=== PATIENT | male | born 1975 | race Caucasian/White ===

== ENCOUNTER 2019-07-31 18:19 | Emergency (ER) | payer MEDICAID ==
[~2019-07-31] VITALS: Ht 182.9 cm; Wt 70.8 kg
--- NOTE | 2019-07-31 18:26 | NUR ---
CAME IN FOR ABDOMINAL PAIN AND DISTENSION X 1 MONTH. DENIES PAIN AT BTHIS TIME. TO ER BED 4, HOOKED TO MONITOR, CHANGED TO HOSP GOWN, WARM BLANKET PROVIDED, PATIENT AOx 4, BREATHING EVEN AND UNLABORED, NAD NOTED. DR GALVEZ AT BEDSIDE.
--- NOTE | 2019-07-31 18:47 | NUR ---
PATIENT SIGNED CONSENT FOR THERAPEUTIC PARACENTESIS.
[2019-07-31 18:57] LABS: BASOPHILS % (AUTO) 0.5 % (0.0-2.0); EOSINOPHILS % (AUTO) 0.4 % (0.0-6.0); HEMATOCRIT 43 % (39-51); HEMOGLOBIN 14.3 g/dL (13.5-17.5); LYMPHOCYTES % (AUTO) 9.5 % (20.0-44.0); MEAN CORPUSCULAR HGB CONC 34 g/dl (31.0-36.0); MEAN CORPUSCULAR VOLUME 100 fL (80-96); MONOCYTES # (AUTO) 0.7 /CMM (0.1-1.30); MONOCYTES % (AUTO) 6.9 % (2.0-12.0); NEUTROPHILS # (AUTO) 8.6 /CMM (1.8-8.9); NEUTROPHILS % (AUTO) 82.7 % (43.0-81.0); PLATELET COUNT (AUTO) 266 /CMM (150-450); RED BLOOD CELL COUNT(AUTO) 4.26 MIL/uL (4.5-6.0); WHITE BLOOD COUNT (AUTO) 10.4 K/uL (4.3-11.0)
[2019-07-31] MEDS ORDERED: LIDOCAINE HCL/PF 1% 30 ML VIAL TP ONE (19:00)
[2019-07-31] MEDS ORDERED: LIDOCAINE 1% INJ 50 ML MDV IJ ONE (19:00)
--- NOTE | 2019-07-31 19:22 | NUR ---
DR GAVLEZ AT BEDSIDE FOR PARACENTESIS
--- NOTE | 2019-07-31 19:35 | NUR ---
REPORT GIVEN TO DEVANTE MARTINEZ FOR OLGA
[2019-07-31] MEDS ORDERED: HYDROCODONE/APAP 5/325MG 1 EACH TABLET ONE (19:47)
[2019-07-31] MEDS ORDERED: HYDROCODONE/APAP 5/325MG 1 EACH TABLET PO ONE (20:00)
--- NOTE | 2019-07-31 20:10 | NUR ---
PARACENTESIS OUTPUT NOTED AT 1025ML
--- NOTE | 2019-07-31 20:29 | NUR ---
Patient discharged to home in stable condition. Written and verbal after care instructions given. Patient verbalizes understanding of instruction. Pt ambulatory with a steady gait
[2019-07-31 20:30] VITALS: BP 119/75
[2019-08-03] MEDS ORDERED: CHLO25CA22 PO (11:39)
[2019-08-03] MEDS ORDERED: SPIR25TA PO (11:39)
[2019-08-03] MEDS ORDERED: LEVO500T75 PO (11:39)
== END 2019-07-31 20:31 | disposition home or self-care (01) ==
LOC: ER 18:24
DX: R18.8 Other ascites (principal); Z88.0 Allergy status to penicillin; Z60.2 Problems related to living alone
CPT/HCPCS: 36415; 49083; 85025; 85730; 99285; J3490 ×2

== ENCOUNTER 2019-08-02 21:47 | Inpatient (IN) | payer MEDICAID ==
[~2019-08-02] VITALS: Ht 182.9 cm; Wt 68.9 kg
--- NOTE | 2019-08-02 21:50 | NUR ---
PT CAME INTO THE ED C/O LOWER AND R SIDED ABDOMINAL PAIN 7/10 W/ ABDOMINAL DISTENTION. PT ENDROSES ASCITES AND ADMITS TO BEING A CHRONIC ALCOHOLIC. PT AAOX4, BREATHING EVEN AND UNLABORED ON RA W/ NAD NOTED. PT CONNECTED TO THE MONITOR AND POX
[2019-08-02] MEDS ORDERED: CLINDAMYCIN 900 MG/6 ML VIAL ONE (23:00)
[2019-08-02] MEDS ORDERED: ONDANSETRON HCL/PF 4 MG/2 ML VIAL IVP ONE (23:00)
[2019-08-02] MEDS ORDERED: CLINDAMYCIN 900 MG in IV D5W 100 ML IV ONE (23:00)
[2019-08-02] MEDS ORDERED: CEFTRIAXONE 1GM BAG (ER ONLY) 50 ML IV ONE ×2 (23:00)
[2019-08-02] MEDS ORDERED: LORAZEPAM INJ 2 MG/ML VIAL IV ONE (23:00)
[2019-08-02] MEDS ORDERED: HYDROMORPHONE INJ 2 MG/ML DISP.SYRIN IV ONE (23:00)
--- NOTE | 2019-08-02 23:00 | NUR ---
DR ZALDIVAR AT BEDSIDE
[2019-08-02] MEDS ORDERED: LORAZEPAM INJ 2 MG/ML VIAL ONE (23:01)
[2019-08-02] MEDS ORDERED: HYDROMORPHONE 1 MG/1 ML DISP.SYRIN ONE (23:01)
[2019-08-02] MEDS ORDERED: ONDANSETRON HCL/PF 4 MG/2 ML VIAL ONE (23:01)
[2019-08-02 23:16] LABS: BASOPHILS % (AUTO) 0.6 % (0.0-2.0); EOSINOPHILS % (AUTO) 0.5 % (0.0-6.0); HEMATOCRIT 40 % (39-51); HEMOGLOBIN 13.3 g/dL (13.5-17.5); LYMPHOCYTES % (AUTO) 11.9 % (20.0-44.0); MEAN CORPUSCULAR HGB CONC 33 g/dl (31.0-36.0); MEAN CORPUSCULAR VOLUME 101 fL (80-96); MONOCYTES # (AUTO) 0.7 /CMM (0.1-1.30); MONOCYTES % (AUTO) 8.9 % (2.0-12.0); NEUTROPHILS # (AUTO) 6.6 /CMM (1.8-8.9); NEUTROPHILS % (AUTO) 78.1 % (43.0-81.0); PLATELET COUNT (AUTO) 212 /CMM (150-450); RED BLOOD CELL COUNT(AUTO) 3.98 MIL/uL (4.5-6.0); WHITE BLOOD COUNT (AUTO) 8.4 K/uL (4.3-11.0)
[2019-08-02 23:23] LABS: CALCIUM, SERUM 8.9 mg/dL (8.5-10.1); CREATININE 0.8 mg/dL (0.6-1.3)
[2019-08-02 23:29] LABS: ALBUMIN 3.1 g/dL (3.4-5.0); BILIRUBIN,DIRECT 0.6 mg/dL (0.0-0.2); BILIRUBIN,TOTAL 1.3 mg/dL (0.2-1.0); TOTAL PROTEIN, SERUM 6.9 g/dL (6.4-8.2)
--- NOTE | 2019-08-02 23:38 | NUR ---
PT TAKEN TO CT
--- NOTE | 2019-08-02 23:50 | NUR ---
PT BACK FROM CT
[2019-08-02] MEDS ORDERED: diphenhydrAMINE HCL 50 MG/ML VIAL ONE (23:53)
[2019-08-02] MEDS ORDERED: methylPREDNISolone SOD SUCC 125 MG/2ML VIAL ONE (23:59)
[2019-08-03] MEDS ORDERED: ZOLPIDEM TARTRATE 5 MG TABLET PO PRN
[2019-08-03] MEDS ORDERED: diphenhydrAMINE HCL 50 MG/ML VIAL IV ONE
[2019-08-03] MEDS ORDERED: FOLIC ACID 1 MG TABLET PO ONE
[2019-08-03] MEDS ORDERED: ONDANSETRON HCL/PF 4 MG/2 ML VIAL IVP PRN
[2019-08-03] MEDS ORDERED: Z GUARD REMEDY 2 OZ OINT TP PRN
[2019-08-03] MEDS ORDERED: HYDROCODONE/APAP 5/325MG 1 EACH TABLET PO PRN
[2019-08-03] MEDS ORDERED: ACETAMINOPHEN 325 MG TABLET PO PRN
[2019-08-03] MEDS ORDERED: MAGNESIUM HYDROXIDE 30 ML UDC PO PRN
[2019-08-03] MEDS ORDERED: LORAZEPAM INJ 2 MG/ML VIAL IV PRN
[2019-08-03] MEDS ORDERED: MAG HYDROX/AL HYDROX/SIMETH 30 ML UDC PO PRN
[2019-08-03] MEDS ORDERED: methylPREDNISolone SOD SUCC 125 MG/2ML VIAL IV ONE ×2 (00:30)
--- NOTE | 2019-08-03 01:29 | NUR ---
REPORT GIVEN TO MICHELLE ANGELES
[2019-08-03] MEDS ORDERED: OMEP20TA20 PO (02:02)
[2019-08-03] MEDS ORDERED: RANI-655 PO (02:03)
[2019-08-03] MEDS ORDERED: diphenhydrAMINE HCL 50 MG/ML VIAL ONE (02:05)
--- NOTE | 2019-08-03 02:22 | NUR ---
PT TRANSFERRED TO ROOM IN STABLE CONDITION
[2019-08-03 02:30] VITALS: BP 115/82
[2019-08-03] MEDS ORDERED: diphenhydrAMINE HCL 50 MG/ML VIAL IV PRN (02:30)
--- NOTE | 2019-08-03 02:39 | NUR ---
RN ADMITTING NOTES RECEIVED REPORT FROM PATTERN SCRATCHER SOWMYA. Pt ARRIVED TO THE FLOOR VIA ER GELA, WAS ABLE TO WALK TO ROOM 304-1, WITH STEADY GAIT. NO S/S OF ACUTE DISTRESS OR SOB NOTED. Pt IS A/OX4, VERBAL, ABLE TO MAKE NEEDS KNOWN. IV ACCESS ON LAC #20G. SAFETY MEASURES IN PLACE. BED LOW, LOCKED, HOB ELEVATED, SIDE RAILS UP, CALL LIGHT AND BEDSIDE TABLE WITHIN REACH. WILL CONTINUE TO MONITOR Pt's CONDITION AND SAFETY THROUGHOUT THE NIGHT.
[2019-08-03] MEDS ORDERED: FOLIC ACID 1 MG TABLET ONE (02:40)
[2019-08-03 03:00] VITALS: BP 115/82
[2019-08-03 04:00] VITALS: BP 102/68
[2019-08-03] MEDS ORDERED: CLINDAMYCIN IV RTU IN D5W 600 MG/50 ML PIGGYBACK IV SCH (05:00)
--- NOTE | 2019-08-03 05:02 | NUR ---
RN NOTES Pt ALREADY RECEIVED A BAG OF CLINDAMYCIN IN THE ER AT 0000. PER ORDER Q8H. NON ADMINISTERED 0500 DOSE.
[2019-08-03] MEDS ORDERED: LORA-259 PO (05:19)
[2019-08-03] MEDS ORDERED: HYDR-4384 PO (05:19)
[2019-08-03 06:11] LABS: BASOPHILS % (AUTO) 0.1 % (0.0-2.0); HEMATOCRIT 37 % (39-51); HEMOGLOBIN 12.4 g/dL (13.5-17.5); LYMPHOCYTES # (AUTO) 0.3 /CMM (0.8-4.8); LYMPHOCYTES % (AUTO) 5.3 % (20.0-44.0); MEAN CORPUSCULAR HGB CONC 33 g/dl (31.0-36.0); MEAN CORPUSCULAR VOLUME 100 fL (80-96); MONOCYTES # (AUTO) 0.1 /CMM (0.1-1.30); MONOCYTES % (AUTO) 0.9 % (2.0-12.0); NEUTROPHILS # (AUTO) 5.7 /CMM (1.8-8.9); NEUTROPHILS % (AUTO) 93.7 % (43.0-81.0); PLATELET COUNT (AUTO) 179 /CMM (150-450); RED BLOOD CELL COUNT(AUTO) 3.71 MIL/uL (4.5-6.0); WHITE BLOOD COUNT (AUTO) 6.1 K/uL (4.3-11.0)
[2019-08-03 06:34] LABS: CALCIUM, SERUM 8.6 mg/dL (8.5-10.1); CREATININE 0.7 mg/dL (0.6-1.3); MAGNESIUM 1.8 mg/dL (1.8-2.4); PHOSPHORUS 3.5 mg/dL (2.5-4.9); POTASSIUM 3.8 mmol/L (3.5-5.1)
[2019-08-03 06:40] LABS: THYROID STIMULATING HORMONE 1.256 uIU/mL (0.358-3.74)
--- NOTE | 2019-08-03 07:00 | NUR ---
Tele/RN opening Note Received patient AO x 4, able to responds all stimuli. Denies pain at this time, skin is warm to touch, clean/dry,intact IV site. Respiratory even and unlabored in room air. keeplower position of bed with elevated HOB. Call light within reach, will continue to monitor.
--- NOTE | 2019-08-03 07:10 | NUR ---
RN CLOSING NOTES NO SIGNIFICANT CHANGES IN Pt's CONDITION. Pt IS RESTING COMFORTABLY IN BED. NO S/S OF ACUTE DISTRESS OR SOB NOTED. ALL NEEDS MET AND ATTENDED TO. SAFETY MEASURES IN PLACE. WILL ENDORSE TO DAYSHIFT RN FOR Pt's OLGA.
[2019-08-03] MEDS ORDERED: CLINDAMYCIN 600 MG in IV D5W 50 ML IV SCH (07:28)
[2019-08-03 08:00] VITALS: BP 102/71
[2019-08-03] MEDS ORDERED: CEFTRIAXONE 1GM BAG (ER ONLY) 1 GM/50 ML PIGGYBACK IV SCH (09:00)
--- NOTE | 2019-08-03 11:09 | NUR ---
Social service consult requested by for alcohol abuse resources. Per MD notes pt is a 43-year-old male who was here 2 days ago with abdominal pain and abdominal distention due to ascites, chronic abdominal pain due to recurrent ascites secondary to alcoholic liver disease and complaints of withdrawal symptoms whenever he stops drinking alcohol. Pt was admitted to [facility] for abdominal wall cellulitis. LICENSING OFFICER met with the pt bedside. LICENSING OFFICER introduced self, explained the role of SW and purpose of the visit. Pt is alert and oriented x 4. Pt is pleasant and cooperative. Pt resides alone in an apt in [place]. Pt reports he was recently laid off and has to move out of his place by Aug 12, 2019. Pt is currently looking for a job. Pt reports to drink alcohol daily. Pt reports he drinks up to 2 bottles of wine per day. Pt has no history of an alcohol treatment program but is interested in resources. Pt reports to have a psychiatric diagnosis of Bipolar II Disorder and Depression. Pt has a prescription of Geodon, Zoloft and Gabapentin but only take Gabapentin at night to help him sleep. Pt denies SI/HI. Pt was concerned about not having medical insurance. LICENSING OFFICER informed pt he does have [employer] 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 Pt was very appreciative with the assistance from LICENSING OFFICER. LICENSING OFFICER provided pt with active listening, emotional support and brief eduction regarding referrals to alcohol treatment programs. LICENSING OFFICER provided with the following alcohol program referrals: [facility], ; [facility] and [facility] . No other social service needs are requested at this time. LICENSING OFFICER is available, if needed.
[2019-08-03] MEDS ORDERED: SPIR25TA PO (11:39)
[2019-08-03] MEDS ORDERED: LEVO500T75 PO (11:39)
[2019-08-03] MEDS ORDERED: CHLO25CA22 PO (11:39)
--- NOTE | 2019-08-03 14:08 | NUR ---
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 Pt accompanied by staff to the private car, picked up meds at pharmacy before pt left.
[2019-08-03] MEDS ORDERED: CEFTRIAXONE 1 G in IV D5W 50 ML IV SCH (22:00)
== END 2019-08-03 14:43 | disposition home or self-care (01) | DRG 384 ==
LOC: ER 21:53 → TELE 08-03 01:14 → MED 08-03 09:08
PROVIDERS: ADMIT Student in an Organized Health Care Education/Training Program; ATTEND Internal Medicine
DX: S30.1XXA Contusion of abdominal wall, initial encounter (principal); E44.0 Moderate protein-calorie malnutrition; R18.8 Other ascites; K70.9 Alcoholic liver disease, unspecified; K74.60 Unspecified cirrhosis of liver; K29.20 Alcoholic gastritis without bleeding; G89.29 Other chronic pain; Z87.891 Personal history of nicotine dependence; X58.XXXA Exposure to other specified factors, initial encounter; Y92.9 Unspecified place or not applicable
CPT/HCPCS: 36415; 80048-TC; 80061-TC; 80076-TC; 83690-TC; 83735-TC; 84100-TC; 84425; 84443-TC; 85025-TC; 85730-TC; 87081-TC; G0378; J0696; J1170; J1200; J2060; J2405; J2930; J3490; J7050; J7060